=== PATIENT | female | born 1980 | race Hispanic/Latino ===

== ENCOUNTER 2018-10-03 07:23 | Emergency (ER) | payer MEDICAID ==
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
== END 2018-10-03 09:20 | disposition short-term general hospital (02) ==
LOC: ED 07:23
DX: I46.9 Cardiac arrest, cause unspecified (principal); S06.6X9A Traumatic subarachnoid hemorrhage with loss of consciousness of unspecified duration, initial encounter; S06.5X9A Traumatic subdural hemorrhage with loss of consciousness of unspecified duration, initial encounter; S22.43XA Multiple fractures of ribs, bilateral, initial encounter for closed fracture; S32.502A Unspecified fracture of left pubis, initial encounter for closed fracture; S32.501A Unspecified fracture of right pubis, initial encounter for closed fracture; S72.302A Unspecified fracture of shaft of left femur, initial encounter for closed fracture; I95.9 Hypotension, unspecified; S01.01XA Laceration without foreign body of scalp, initial encounter; V03.90XA Pedestrian on foot injured in collision with car, pick-up truck or van, unspecified whether traffic or nontraffic accident, initial encounter
CPT/HCPCS: 31720; 36430; 70450; 70486; 71045; 71260; 72125; 72170; 73110; 74177; 80053; 82150; 82550; 82803; 83690; 85025; 86850; 86900; 86901; 86920; 86927; 92950; 94002; 94799; 99291; G0390; G0480; J0171; J7050; P9016; Q9967